=== PATIENT | male | born 1995 | race Caucasian/White ===

== ENCOUNTER 2024-02-07 10:49 | Inpatient (IN) | payer OTHER ==
[2024-02-07] MEDS ORDERED: Ibuprofen 400 MG TAB PO PRN (11:21)
[2024-02-07] MEDS ORDERED: Ondansetron ODT 4 MG TAB PO PRN (11:21)
[2024-02-07] MEDS ORDERED: Acetaminophen 325 MG TAB PO PRN (11:21)
[2024-02-07 11:28] VITALS: BMI 27.0
[2024-02-07] MEDS ORDERED: Electrolyte Replacement Protocol 1 EACH FS SCH (11:30)
[2024-02-07 11:48] LABS: #Basophils 0.07 10x3/uL (0.0-0.2); #Eosinphils 0.21 10x3/uL (0.0-0.5); #Monocytes 0.63 10x3/uL (0.0-1.1); #Neutrophils 3.73 10x3/uL (1.5-8.4); %Basophils 1.2 % (0.0-2.0); %Eosinophils 3.6 % (0.0-6.0); %Lymphocytes 20.5 % (18.0-47.0); %Monocytes 10.8 % (0.0-10.0); %Neutrophils 63.7 % (40.0-75.0); Hematocrit 41.7 % (38.8-50.0); Hemoglobin 15.1 g/dL (13.5-17.5); Mean Corpuscular HGB CONC 36.2 g/dL (32.0-36.0); Mean Corpuscular Hemoglobin 30.9 pg (27.0-33.0); Mean Corpuscular Volume 85.5 fL (81.2-95.1); Mean Platelet Volume 10.8 fL (7.4-10.4); Platelet Count 143 10x3/uL (150-450); Red Blood Cell (RBC) Count 4.88 10x6/uL (4.32-5.72); White Blood Cell (WBC) Count 5.9 10x3/uL (3.5-10.5)
[2024-02-07 12:09] LABS: Bilirubin Neg (Negative); Blood, Urine Negative (Negative); Clarity Clear (Clear); Glucose, Urine (Dipstick) Normal (Negative); Ketone, Urine Negative (Negative); Leukocyte Negative (Negative); Nitrite Negative (Negative); Protein, Urine (Dipstick) Negative (Neg-Trace); Urobilinogen Normal mg/dL (Less than 2)
[2024-02-07 12:12] LABS: ALT (SGPT) 27 U/L (8-55); AST (SGOT) 24 U/L (5-34); Albumin 3.6 g/dL (3.5-5.0); Alkaline Phosphatase 53 U/L (40-110); Anion Gap 9 mmol/L (10-20); BUN (Urea Nitrogen) 11 mg/dL (8.9-20.6); CK (CPK) 87 U/L (30-200); Calc. Creatinine Clearance 139 mL/min (70-130); Calcium 9.2 mg/dL (7.8-10.44); Carbon Dioxide 26 mmol/L (22-29); Chloride 107 mmol/L (98-107); Estimated GFR 100; Globulin 2.5 g/dL (2.4-3.5); Glucose 98 mg/dL (70-105); Potassium 4.3 mmol/L (3.5-5.1); Protein, Total 6.1 g/dL (6.0-8.3); Sodium 138 mmol/L (136-145)
[2024-02-07 12:18] LABS: Bacteria/HPF Rare-Few HPF (None Seen); RBC/HPF None Seen HPF (0-3); Squamous Epithelial 0-3 HPF (0-3); WBC/HPF 0-3 HPF (0-3)
[2024-02-07 16:56] VITALS: BP 115/76; TEMP 98.3
[2024-02-07] MEDS ORDERED: Lactated Ringer's 1,000 ML IV SCH (17:15)
== END 2024-02-07 19:00 | disposition left against medical advice (07) | DRG 894 ==
LOC: CSHTELE 10:49
PROVIDERS: ADMIT Family Medicine; ATTEND Family Medicine
DX: F10.129 Alcohol abuse with intoxication, unspecified (principal); N17.9 Acute kidney failure, unspecified; E86.0 Dehydration; R00.1 Bradycardia, unspecified; Z53.29 Procedure and treatment not carried out because of patient's decision for other reasons
CPT/HCPCS: 80053; 81001; 82550; 84443; 85025; 93306